=== PATIENT | male | born 1965 | race Caucasian/White ===

== ENCOUNTER 2021-08-31 18:08 | Emergency (ER) | payer BC ==
[2021-08-31 18:27] VITALS: BP 135/81; PULSE 70; TEMP 97.5; BMI 29.9
[2021-08-31] MEDS ORDERED: MAG HYDROX/AL HYDROX/SIMETH -MYLANTA- ORAL SUSPENSION PO ONE (19:05)
[2021-08-31] MEDS ORDERED: ACETAMINOPHEN 325 MG TABLET (FP) PO ONE (19:05)
[2021-08-31] MEDS ORDERED: FAMOTIDINE 20 MG/50 ML IVPB 20 MG/50 ML MG IVPB ONE ×2 (19:05→19:36)
[2021-08-31 19:11] LABS: EOS % 2.4 % (0-4.5); HEMATOCRIT 41.1 % (35.4-49); HEMOGLOBIN 13.9 GM/dL (11.7-16.9); LYMPH % 41.4 % (8-40); MCH 27.9 pg (25.7-33.7); MCHC 33.8 g/dl (32.0-35.9); MEAN CELL VOLUME 82.5 fl (80-96); MONO % 10.5 % (3.8-10.2); NEUT % 44.7 % (42.8-82.8); PLATELET COUNT 188 10^3/uL (134-434); RBC 4.98 M/mm3 (4.00-5.60); RDW 14.3 % (11.9-15.9); WHITE BLOOD COUNT 4.6 K/mm3 (4.0-10.0)
[2021-08-31 19:31] LABS: ALBUMIN 4.3 g/dl (3.4-5.0); BLOOD UREA NITROGEN 16.1 mg/dL (7-18)
[2021-08-31 19:34] LABS: CREATININE 0.9 mg/dL (0.55-1.3)
[2021-08-31 19:36] LABS: BILIRUBIN,TOTAL 0.3 mg/dL (0.2-1); TOT PROT 7.8 g/dl (6.4-8.2)
[2021-08-31] MEDS ORDERED: MAG HYDROX/AL HYDROX/SIMETH 30 ML UNIT-DOSE CUP ONE (19:36)
[2021-08-31] MEDS ORDERED: ACETAMINOPHEN 325 MG TABLET (FP) ONE (19:36)
[2021-08-31] MEDS ORDERED: ASPIRIN 81 MG CHEWABLE TABLETS PO ONE (21:52)
[2021-08-31] MEDS ORDERED: ASPIRIN 81 MG CHEWABLE TABLETS ONE (22:05)
== END 2021-08-31 22:32 | disposition left against medical advice (07) ==
LOC: JER 18:08
PROC: 3E033GC Introduction of Other Therapeutic Substance into Peripheral Vein, Percutaneous Approach (ICD-10-PCS; principal; 2021-08-31)
DX: R07.9 Chest pain, unspecified (principal)
CPT/HCPCS: 36415; 71046-TC-FY; 80053; 84484; 85025; 93005; 93010; 99285-25

== ENCOUNTER 2023-11-28 14:09 | Emergency (ER) | payer BC ==
[2023-11-28 14:26] VITALS: RESP 18; TEMP 98.7; BMI 29.9
[2023-11-28] MEDS ORDERED: ACETAMINOPHEN 325 MG TABLET (FP) ONE (18:31)
[2023-11-28] MEDS: ACETAMINOPHEN 325 MG TABLET (FP) PO ONE (18:34)
[2023-11-28 19:07] VITALS: BP 128/72; PULSE 64
== END 2023-11-28 19:49 | disposition short-term general hospital (02) ==
LOC: JER 14:09
DX: H47.10 Unspecified papilledema (principal); H53.8 Other visual disturbances; Z20.822 Contact with and (suspected) exposure to COVID-19
CPT/HCPCS: 0241U-QW; 70450-TC; 70480-TC; 99285-25